=== PATIENT | male | born 1960 | race Caucasian/White ===

== ENCOUNTER 2022-04-16 06:14 | Emergency (ER) | payer MEDICAID, OTHER ==
[~2022-04-16] VITALS: Ht 180.3 cm; Wt 101.2 kg
[2022-04-16] MEDS ORDERED: methylPREDNISolone SOD SUCC 125 MG/2 ML VL IM ONE (08:15)
[2022-04-16] MEDS ORDERED: KETOROLAC TROMETH 60MG/2ML VIAL IM ONE (08:15)
[2022-04-16 08:49] VITALS: BP 117/80
[2022-04-16] MEDS ORDERED: PRED20TA2 PO (09:20)
== END 2022-04-16 09:28 | disposition home or self-care (01) ==
LOC: ER 06:14
DX: G89.29 Other chronic pain (principal); M54.50 Low back pain, unspecified; M54.16 Radiculopathy, lumbar region; Z87.39 Personal history of other diseases of the musculoskeletal system and connective tissue; Z79.899 Other long term (current) drug therapy
CPT/HCPCS: 96372; 99284; J1885; J2930

== ENCOUNTER 2022-08-01 22:45 | Emergency (ER) | payer MEDICAID ==
[~2022-08-01] VITALS: Ht 180.3 cm; Wt 100.0 kg
[2022-08-01 22:45] VITALS: BP 134/81
[~2022-08-01 22:45] MED LIST: PRED20TA2 PO
== END 2022-08-02 01:07 | disposition left against medical advice (07) ==
LOC: ER 22:46
DX: H57.89 Other specified disorders of eye and adnexa (principal); Z53.21 Procedure and treatment not carried out due to patient leaving prior to being seen by health care provider

== ENCOUNTER 2025-04-17 08:35 | Inpatient (IN) | payer MEDICAID, OTHER ==
[~2025-04-17] VITALS: Ht 182.9 cm; Wt 111.8 kg
[~2025-04-17 08:35] MED LIST changes: +ASPI81CH59 PO; +ATOR20TA50 PO; +CARV3.1240 PO; +CYCL-837 PO; +DOCU-94 PO; +GABA-1250 PO; +PANT40TA2 PO; +PERCOT PO; -PRED20TA2 PO
[2025-04-17] MEDS ORDERED: fentaNYL CITRATE 100 MCG/2 ML VL ONE (09:29)
[2025-04-17] MEDS ORDERED: ONDANSETRON HCL 4 MG/2 ML VIAL ONE ×2 (09:29→15:45)
[2025-04-17] MEDS ORDERED: LIDOCAINE 2% TOPICAL JELLY 5 ML URJT TOP ONE (09:29)
[2025-04-17] MEDS ORDERED: LIDOCAINE 1% INJ PF 5ML AMP ONE (09:29)
[2025-04-17] MEDS ORDERED: KETAMINE 50mg/ML 1ml syringe ONE (09:29)
[2025-04-17] MEDS ORDERED: HYDROmorphone HCL 2 MG/ML VL/or syr ONE ×2 (09:29→18:25)
[2025-04-17] MEDS ORDERED: MIDAZOLAM HCL 2MG/2ML 2ml VIAL (1mg/ml) ONE (09:29)
[2025-04-17] MEDS ORDERED: SODIUM CHLORIDE LOCK 50 ML ONE (09:29)
[2025-04-17] MEDS ORDERED: ROCURONIUM 10MG/ML 10ML VIAL IV ONE (09:29)
[2025-04-17] MEDS ORDERED: PROPOFOL 10 MG/ML 20 ML IV ONE ×4 (09:29→17:54)
[2025-04-17] MEDS ORDERED: fentaNYL CITRATE 5 ML ONE ×3 (09:29→17:10)
--- NOTE | 2025-04-17 14:31 | DVHHP2 ---
History Allergies: Coded Allergies: NO KNOWN ALLERGIES (Unverified , 04/16/22) Chief Complaint: Lumbar stenosis patient arrives today for elective spine surgery with Dr Volodymyr Plaza lumbar 1-5 posterior spinal decompression and fusion with lumbar 1-2 fusion with bone graft and instrumentation. Patient is agreeable to accept blood. The risks/benefits/alternatives of surgery were explained to the patient in detail including but not limited to , stroke, paralysis, myocardial infarction, bleeding, infection, complications of anesthesia (dry mouth, sore throat, dental damage, respiratory depression, blindness), postoperative infection, incomplete relief of symptoms, recurrence of symptoms, damage to blood vessels, nerves and tendons, pulmonary embolism and possible need for repeat surgery in the future. Pain, damage to surrounding soft tissue structures, need for reoperation or future surgery, persistent pain/disability/deformity, bone graft collapse or extrusion of interbody device, instrumentation failure, need for instrumentation removal, dural tear, temporary or permanent nerve root damage, deep vein thrombosis, pulmonary embolism, were described to the patient in detail and the patient wishes to proceed. No guarantee of surgical outcome/improvement was implied. All of the questions were answered thoroughly and consents were obtained. Call with questions Loco Mayfield [facility] Orthopaedic Spine Surgery nurse practitioner For Dr Patrick Plaza Patient was examined, chart reviewed, labs evaluated, and diagnostic studies and findings analyzed. Case was discussed with Dr. Volodymyr Plaza who formulated the plan of care. This medical document was created using an electronic medical record system with [employer] dictation system. Although this document has been carefully reviewed, there might still be some phonetic and typographical errors. These areas are purely typographical due to imperfections of the software programs, and do not reflect any compromise in the patient's medical care. Present Illness(Onset/Duration Patient has a history of prior surgeries to his back x4, he has had excruciating back and neck pain for about 40 years, currently he is suffering from excru ciating low back pain which is limiting his range of motion daily activities he is in pain management and is on home narcotic medications and muscle relaxers currently. Which are not helping physical therapy has not helped in the past and his prior surgeries have not resolved any of his pain. Noncontributory in this case Past Surgical History: Other (Lumbar surgeries x4, cervical surgery x1 left knee surgery x1 left shoulder rotator cuff surgery x1 two months ago) Exam Exam General Appearance: None, Normal, Obese HEENT: Normal ENT Inspection Neck: Normal, Normal Inspection, Other (Chronic neck pain) Respiratory: No Accessory Muscle Use, None, No Respiratory Distress, Other (Patient is speaking full sentences no distress noted) Cardiovascular: No Edema, No JVD, Normal Peripheral Pulses, Other (No complaints of chest pain, patient has been seen by Cardiology and recently had cardiac clearance for surgery two months ago) Gastrointestinal: Other (No complaints of nausea vomiting or diarrhea) Extremities: Normal capillary refill, Normal inspection, Other (Low back pain limiting range of motion of the bilateral lower extremities) Neurologic: Alert, Normal Mood (Pain to bilateral legs right leg is weaker than left and more painful), Other Cerebellar Function: Other (Limited and walking due to low back pain and leg numbness) Reflexes: None (Hypo reflexive bilateral lower extremities) Skin: Normal Color, Warm DENZEL MAYFIELD NP Apr 17, 2025 14:31
[2025-04-17] MEDS ORDERED: MORPHINE SULFATE INJ 2 MG/ml SYRG IV PRN (14:45)
[2025-04-17] MEDS ORDERED: MORPHINE SULFATE 4 MG/ML SYR/VIAL IV PRN (14:45)
[2025-04-17] MEDS ORDERED: HYDROmorphone HCL 2 MG/ML VL/or syr IV PRN ×3 (14:45→19:45)
[2025-04-17] MEDS ORDERED: METOCLOPRAMIDE HCL 5MG/ml INJ 2ml VIAL ONE (15:45)
[2025-04-17] MEDS: ceFAZolin 2 GM/D5W50ml 50 ML IV ONE (15:50)
[2025-04-17] MEDS: LIDOCAINE W/ EPINEPHRINE 1% 20ML VIAL ONE (15:56)
[2025-04-17] MEDS: TRANEXAMIC ACID 10 ML ONE (15:56)
[2025-04-17] MEDS ORDERED: SUGAMMADEX 200mg/2ml Vial (100MG/ML) IV ONE (18:18)
[2025-04-17] MEDS ORDERED: NITROGLYCERIN 0.4 MG SL TAB SL PRN (18:30)
[2025-04-17 19:29] VITALS: PULSE 84; RESP 9; O2SAT 99
--- NOTE | 2025-04-17 19:35 | DVHOP2 ---
Operative Report - 2 Report Details Date: 04/17/25 Preop Diagnosis: 1. post laminectomy syndrome lumbar spine with lumbar 1 to 5 spinal stenosis and massive L1/2 disck herniation Postop Diagnosis: same as pre op Surgeon: Volodymyr Miles MD Saw Operator: Doretha Mayfield NP Anesthesiologist: general Anesthesia: General Consent: The patient was informed of the risks and benefits of the procedure. These include but are not limited to complications of anesthesia, postoperative infection, incomplete relief of symptoms, recurrence of symptoms, damage to blood vessels, nerves and tendons, deep venous thrombosis, pulmonary embolism and possible need for repeat surgery in the future. Name of Procedure Performed see detailed note Procedure Details Procedure Details: Pre-op Diagnosis: 1. Post laminectomy syndrome lumbar spine with residual lumbar spinal stenosis and massive L1/2 herniated disc 3. 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 . 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 Revision lumbar 5 laminotomies/foraminotomies/facetectomies to decompress central canal and lumbar 5 nerve roots bilaterally 2. Revision lumbar 4 laminotomies, foraminotomies/facetectomies to decompress central canal and lumbar 4 nerve roots bilaterally 3. Revision lumbar 3 laminotomies foraminotomies and facetectomies to decompress central canal and bilateral lumbar 3 rakesh roots 4. Lumbar 2 laminectomy with bilateral lumbar 2 laminotomies/foraminotomies/facetectomies to decompress spinal canal and lumbar 2 nerve roots 5. Lumbar 1 to 2 posterior spinal intertransverse fusion with bone graft 6. Lumbar 1 to 2 posterior spinal instrumentation with pedicle screws 7. Autograft bone for fusion 8. Allograft bone to augment fusion 9. De-mineralized bone matrix to augment fusion 10. Microscope for micro dissection 11. Removal of retained deep spinal hardware lumbar spine Surgeon: Dr. Miles Assist: Doretha Mayfield NP Anesthesia: General Fluids and EBL: See anesthesia note Patient was seen in the Pre Anesthesia Care Unit (PACU) and the operative site was initialed by me. All questions were answered to the patients satisfaction and chart reviewed. The patient was taken to the operative room where pre- operative antibiotics were given 30 minutes prior to incision. General a nesthesia was induced and neuro-monitoring leads placed. Montalvo catheter was placed. The patient was turned prone onto the OSI-Noe spinal table. While positioning, I made sure that the belly was free to allow proper expansion of the lungs. The hips were extended and all bony prominences padded. The shoulders were abducted 80 degree and the elbows flexed 100 degrees with no tension on the brachial plexus. I check the foot arterial pulses and they were palpable. The old surgical scar was marked with a marker prior to prepping and draping. The patient was prepped and draped and time out was taken at this time per usual protocol. At this time, the C-arm fluoroscope was brought in and was used to renzo the incision borders proximally and distally. I made sure to use the previous incision and extended proximally as needed. Using a Number 10 Blade, an incision was made extending it proximally and distally per C arm renzo from the posterior spinous process of lumbar 3 down to lumbar 5 , down to the lumbo-dorsal fascia. All bleeding was controlled with electrocautery. Self-retaining retractors were placed. Electrocautery was then used to take down the lumbo-dorsal fascia, to free the muscle off the bone bilaterally where the tissue was virgin. A Micah retractor was placed over the posterior spinous process proximally and a lateral C-arm fluoroscope image was taken to insure we were at the correct level. Next, dissection through the prior surgical site was started at virgin tissue and the deep back muscles were taken down as deep as possible while avoiding getting too close to the dura and avoiding being too shallow to cause nerve injury and bleeding. Next, using bovie electro cautery, The deep fascia laterally to the facet joints was removed to expose the transverse processes of lumbar 2 , 3 and 4 and 5 while taking care to avoid injuring the facet capsule at the proximal end of the incision. At this point, I was able to expose the bilateral lumbar 2,3,4,5,Sacral 1 pedicle screw construct and it was removed without issue. Next, the microscope was bought in for visualization and using a Luxell rongeur, the posterior spinous process of lumbar 3,4,and remnants of lumbar 5 removed and the bone was saved for use as local autograft. I used alternating Kerison 2 mm and 3 mm rongeurs to perform lumbar 3 ,4 and 5 and bilateral laminotomies/foraminotomies and facetectomies to revise the decompression of the central canal and lateral recesses and foramen to decompress the bilateral lumbar 3,4,5 nerve roots and central canal. Next a lumbar 2 laminectomy performed with bilateral lumbar 2 foraminotomies/and facetectomies to decompress the central canal and bilateral lumbar 2 nerve roots. Next using alternating Kerison 2mm and 3 mm rongeurs, the superior articular facets of lumbar 2 were removed bilaterally at the virgin dissection to decompress the lateral recess (facetectomies) and then extended proximally to decompress the foramen bilaterally (foraminotomies). Next , carefully, straight and curved curettes were used to free up the dura from residual lamina left from the prior surgeries and kerison 2mm and 3 mm rongeurs removed the remaining lamina (revision laminotomies). Next, the 3mm and 3mm Kerison rongeurs undercut the superior articular facets and widened the foramina in the manner described above for the4 and 5 levels. I used a ball tipped nerve probed to insure that the respective nerve roots were able to be mobilized 5mm in each direction were unimpeded in the lateral recess and foramen. Next I carefully inspected the dura to make sure no durotomy was visible and it was not. I covered the exposed dura with gelfoam soaked in thrombin and the microscope was wheeled away from the operative filed. Using C arm fluoroscopy, I used the previous screw sites and placed 7.5 X50 screws back into the lumbar 2 pedicles and then placed 6.5 X50mm pedicle screws into Lumbar 1 Next, the c-arm fluoroscope took an AP and lateral x-ray to ensure proper placement of the pedicle screws. Next, the neuro-stimulation probe was placed over the tip of each screw and each screw stimulated only after a current greater than 10 mA was delivered to the screw. Next , I took a Midas Miguel Drill to decorticate the transverse process which were exposed and local bone graft, Bacterin allograft bone substitute and Demineralized bone matrix were placed along the inter transverse process intervals bilaterally (the fusion bed). Next a curved ashlee sized to fit the pedicle screw interval was placed and secured to each pedicle screw using set screws, The set screws were tighten using a torque screwdriver (set to 10 N*M torque) to secure the ashlee to the pedicle screws bilaterally. Final AP and lateral C arm fluoroscopic films were taken at this time. Next a 10 English diameter Hemovac drain was laced deep to the lumbo- dorsal fascia. The lumbo-dorsal fascia was closed with interrupted 0-Vicry sutures. The subcutaneous tissue was closed with interrupted 2-0 Vicryl sutures. The skin was closed with 2-0 nylon subcuticular suture. Sterile dressings were place. The pt. was turned supine onto the stretcher, extubated and taken to the recovery room in stable condition. Additional Notes: cpt codes: [id number] Condition Stable Disposition Still a Patient VOLODYMYR MILES MD Apr 17, 2025 19:35
[2025-04-17 19:45] VITALS: PULSE 85; RESP 9; O2SAT 96
[2025-04-17] MEDS: ACETAMINOPHEN IV 1000 MG/100ML (10MG/ML) IV ONE (19:45)
--- NOTE | 2025-04-17 20:32 | DVH ---
C-ARM FLUOROSCOPY: PROCEDURE: Revision L1 through L5. Technique: C-arm used for decompression posteriorly of L1 through L5. FLUOROSCOPY TIME: 46.2 seconds DAP: 30.5 mgy FINDINGS: Spot intraoperative C arm radiographs demonstrating less than 60 minutes. IMPRESSION: 1. Please refer to surgical report for detailed findings.
--- NOTE | 2025-04-17 20:34 | DVH ---
CLINICAL INDICATION: REVISION L1-5 TECHNIQUE: 9 radiographic views of the revision of L1 through L5 were obtained. Comparison: None FINDINGS/IMPRESSION: Total fluoro time 46.2 seconds Cumulative dose: 30.5 mGy
[2025-04-17] MEDS: ceFAZolin 1GM/50ML 50 ML IV SCH (22:54)
[2025-04-17] MEDS: DOCUSATE SOD 100 MG CAP PO SCH (22:55)
[2025-04-17] MEDS: CYCLOBENZAPRINE HCL 10 MG TAB PO SCH (22:57)
[2025-04-17] MEDS: CARVEDILOL 3.125 MG TAB PO SCH (22:57)
[2025-04-17] MEDS: MORPHINE SULFATE INJ 2 MG/ml SYRG IV PRN (22:59)
[2025-04-17] MEDS: D5W/SOD CHLO 0.9% 1,000 ML IV SCH (23:27)
[2025-04-18] VITALS (8 sets, daily range): BP systolic 113–122; BP diastolic 67–87; PULSE 91–116; RESP 17–19; TEMP 98–98.7; O2SAT 91–96
[2025-04-18] MEDS: HYDROcodone-ACET 10/325MG TAB PO PRN (02:26)
[2025-04-18] MEDS: GABAPENTIN 300 MG CAP PO SCH (08:35)
[2025-04-18] MEDS ORDERED: DOCUSATE SOD 100 MG CAP PO SCH (10:00)
[2025-04-18] MEDS: KETOROLAC TROMETH 30 MG/ML 1ML VIAL IV ONE (10:15)
[2025-04-18] MEDS: METOCLOPRAMIDE HCL 5MG/ml INJ 2ml VIAL IV ONE ×2 (10:15)
[2025-04-18] MEDS: ONDANSETRON HCL 4 MG/2 ML VIAL IV ONE (10:16)
[2025-04-18] MEDS ORDERED: SUCCINYLCHOLINE CHLORIDE 20 MG/ML 10ML VIAL IV ONE (13:14)
[2025-04-18 14:13] LABS: Hematocrit 37.5 % (41.0-53.0); Hemoglobin 12.8 g/dL (13.5-17.5)
--- NOTE | 2025-04-18 14:30 | DVHPN2 ---
Progress Note - Surgical Date Seen: Apr 18, 2025 Post op day Post op day: 1 Subjective Review of Systems: HEENT:Normal, CVS:Normal, RESPIRATORY:Normal, GI:Normal, :Normal, MSK:Abnormal (Patient states that he has difficulty ambulating due to bilateral leg weakness left was started 1st excruciating low back pain), NEURO:Abnormal (Patient has had four prior lumbar surgeries) Objective Vital signs Vital Sign Date Time Temp Pulse Resp B/P (MAP) Pulse Ox O2 Delivery O2 Flow Rate FiO2 04/18/25 13:16 116 18 110/59 04/18/25 12:58 98.6 95 98.6 04/18/25 00:50 Room Air* 0 21 Total Intake and Output 04/17/25 04/17/25 04/18/25 15:00 23:00 07:00 Intake Total 500 ml 160 ml 300 ml Output Total 250 ml 300 ml Balance 500 ml -90 ml 0 ml Medications Current Medications Medications Dose Ordered Sig/Luzma Route Start Time Stop Time Status Last Admin Dose Admin Atorvastatin Calcium 20 mg HS PO 04/18/25 22:00 Carvedilol 3.125 mg BID PO 04/17/25 22:00 04/18/25 08:36 3.125 MG Docusate Sodium 100 mg DAILY PO 04/18/25 10:00 Hold Gabapentin 300 mg DAILY PO 04/18/25 10:00 04/18/25 08:35 300 MG Dextrose/Sodium Chloride 1,000 ml @ 100 mls/hr Q10H IV 04/17/25 18:30 04/18/25 03:38 100 MLS/HR Ondansetron HCl 4 mg Q4HP PRN IV 04/17/25 18:30 Acetaminophen 650 mg Q6HP PRN PO 04/17/25 18:30 Acetaminophen/ Hydrocodone Bitart 1 tab Q6HP PRN PO 04/17/25 18:30 04/18/25 10:47 1 TAB Cyclobenzaprine HCl 10 mg TID PO 04/17/25 22:00 04/18/25 06:07 10 MG Docusate Sodium 100 mg BID PO 04/17/25 22:00 04/18/25 08:36 100 MG Cefazolin Sodium 50 ml @ 100 mls/hr Q8HR IV 04/17/25 22:00 04/19/25 14:29 04/18/25 13:15 100 MLS/HR Nitroglycerin 0.4 mg Q5MINP PRN SL 04/17/25 18:30 Morphine Sulfate 2 mg Q30M PRN IV 04/17/25 18:30 Morphine Sulfate 2 mg Q4HP PRN IV 04/18/25 14:00 Laboratory Laboratory Tests 04/18/25 14:00 Examination: GENERAL:Normal, HEENT:Normal, NECK:Normal, LUNGS:Normal, CVS:Normal, ABDOMEN:Normal, MSK:Normal (That his pain is patient states that his pain is poorly controlled overnight he had difficulty sleeping he has been able to reposition himself independently in bed), SKIN:Normal, NEURO:Normal (Patient states that his preoperative symptoms have improved but his post surgical pain is excruciating), :Normal Problem List/Assessment/Plan Problems: (1) Acute post-operative pain (2) Muscle spasm of back (3) Lumbar radiculopathy (4) Acute exacerbation of chronic low back pain (5) Hx of degenerative disc disease Assessment and Plan POD # 1. Disposition: -Pending Events of the day Patient states he had extreme difficulty sleeping last night due to poorly controlled pain Patient states that he has improvement in preoperative symptoms Patient able to independently move himself around bed with increased pain with movement Patient has not gotten up out of bed yet Drain output documented as 120 but no indication of which drain the output was from, drain to reservoir basically MD and this will be discontinued, drain 1. Was emptied and got 180 mL out is unsure when the last time this drain was emptied Reviewed drain assessment protocols and expectations with staff, no documentation of overnight draining with delineation of drains one or two -Discharge RX: Pending -Follow up appointment: with Dr Plaza on prior scheduled appointment date set out preop appointment [id number] [facility] [address] [place] [id number] -Pain: - IV pain meds post op day 1, with PO supplementation, goal is to progress weaning off IV medications and control pain with PO only. morphine 2mg q 4 hours (PAIN 7-10) - P.O. analgesics:Tylenol 650MG (PAIN 1-3) Peyton 10/325 mg (PAIN 4-6) - Muscle relaxers scheduled administration. This is a beneficial medications for the incisional pain as it is mostly related to muscle spasms. Flexeril 10 mg TID - Cepacol throat lozenges as needed for sore throat -Antibiotics Operative recommendations: -Postoperative dose:-Post operative antibiotics cefazolin 1 g IV piggyback every 8 hours x 48 hours total of 6 doses -DVT PPX: -Hold all chemical DVT/ blood thinners for 14 days postoperatively -use mechanical DVT PPX such as SCD's, ambulation -Activity: -Pending PT evaluation and patients progression -Sit at side of bed for meals -Goal: Ambulate independently and safely (may use assistive devices if needed) -Medical Therapy goals: -Afebrile- Patient may develop a expected post operative fever by day 2-3, this may not be accompanied with a elevation in WBC. if fever develops: Acetaminophen for fever. Albuterol nebulizer Tx every 12 hours for 24 hours to facilitate adequate lung expansion and prevent development of atelectasis. -Euglycemic: bloods sugars under 130mmol/L for optimal healing -Normotensive: Avoid events of hypertension. This helps to keep post operative healing intact and avoids destabilization of beneficial hemostatic coagulation. -Lumbar: -If patient is comfortable encouraged the patient to lay on their side to facilitate wound healing -Drains: -Hemovac drains: These will be to full compression unless otherwise ordered. Please record and document output AND characteristic of fluid present independently EVERY 6 hours more often as needed. if there in no output indicate this by documenting 0ml. If output is greater than 100 ml in one hour of ajay blood call provider. These drains will be removed once the drainage is at a acceptable level (generally less than 100ml in 24 hours) -Neo dressing: This will stay in place and will be removed at the patients follow up visit. Nursing is to assess the seal and power source. The seal should be intact and the power source should have a green flashing light indicating it is functioning well. Batteries can last up to 14 days. If a leak develops the dressing edges can be reinforced with a Tegaderm dressing to reestablish intact seal. The Neo dressing is NOT a wound vac. This does not get changed, it does not need home health management. -Record output independently, drain 1. Is a deep drain and drain 2. Is a superficial drain. Wound drainage is described by type, color, amount, and odor. Drainage can be 1 Serous: Clear and thin, may be present in healing healthy wound. 2 Serosanguineous containing blood may also be present and healthy healing wound 3. Sanguinous primarily blood 4. Purulent this is thick, white, and pus like. It may be indicated to give of a infection and should constitute a call to the provider immediately with the plan that the sample should be cultured. -Montalvo: discontinued in OR -Dressings Take care not to disrupt the NEO dressing seal. If there is a break in the seal it can be trouble shot with a Tegaderm dressing. -Dressing to Hemovac drains may be changed once the drains have been removed by the provider. -Bowel management: -Colace 100mg bid -Diet: -Clear liquid diet and advance as patient tolerates within dietary limitations ( example: diabetic, Cardiac) -Incentive Spirometer: -10 x hour while awake, RN please educate and observe repeat demonstration, have IS at bedside POD #1 -X-rays: - none indicated at this time -Consults: -Physical Therapy evaluation, treatment recommendations, and discharge recommendations Call with questions Loco Pinzon [facility]- Orthopaedic Spine Surgery nurse practitioner For Dr Patrick Plaza Patient was examined, chart reviewed, labs evaluated, and diagnostic studies and findings analyzed. Case was discussed with Dr. Volodymyr Plaza who formulated the plan of care. This medical document was created using an electronic medical record system with [employer] dictation system. Although this document has been carefully reviewed, there might still be some phonetic and typographical errors. These areas are purely typographical due to imperfections of the software programs, and do not reflect any compromise in the patient's medical care. My Orders My Orders Orders - DENZEL PINZON NP Procedure Category Date Status Time Morphine Sulfate PHA 04/18/25 In Process Injection 14:00 Plan discussed with Plan discussed with: Patient, Other ([place] extension [phone]) Visit Coding Surgery Date of Service if different f: Apr 17, 2025 Billing Provider: DENZEL PINZON NP Surgery Visit Codes: NOT BILLABLE DENZEL PINZON NP Apr 18, 2025 14:30
[2025-04-18] MEDS: MORPHINE SULFATE INJ 2 MG/ml SYRG IV PRN (18:14)
[2025-04-18] MEDS: ATORVASTATIN 20 MG TAB PO SCH (21:22)
[2025-04-19] VITALS (8 sets, daily range): BP systolic 116–134; BP diastolic 75–93; PULSE 97–112; RESP 14–18; TEMP 97.6–98.8; O2SAT 93–99
[2025-04-19] MEDS: ONDANSETRON HCL 4 MG/2 ML VIAL IV PRN (02:28)
[2025-04-19] MEDS: MORPHINE SULFATE INJ 2 MG/ml SYRG IV PRN (02:29)
--- NOTE | 2025-04-19 16:36 | DVHPN2 ---
Progress Note - Surgical Date Seen: Apr 19, 2025 Post op day Post op day: 2 Subjective Patient reports: No new complaints, Feels better Review of Systems: HEENT:Normal, CVS:Normal, RESPIRATORY:Normal, GI:Normal, :Normal, MSK:Normal, NEURO:Abnormal Objective Vital signs Vital Sign Date Time Temp Pulse Resp B/P (MAP) Pulse Ox O2 Delivery O2 Flow Rate FiO2 04/19/25 13:01 97 14 129/83 04/19/25 13:00 98.5 95 98.5 04/19/25 07:45 Room Air* 0 21 Total Intake and Output 04/18/25 04/18/25 04/19/25 15:00 23:00 07:00 Intake Total 50 ml 1810 ml 750 ml Output Total 1040 ml 1150 ml Balance 50 ml 770 ml -400 ml Medications Current Medications Medications Dose Ordered Sig/Luzma Route Start Time Stop Time Status Last Admin Dose Admin Atorvastatin Calcium 20 mg HS PO 04/18/25 22:00 04/18/25 21:22 20 MG Carvedilol 3.125 mg BID PO 04/17/25 22:00 04/19/25 08:08 3.125 MG Docusate Sodium 100 mg DAILY PO 04/18/25 10:00 Hold Gabapentin 300 mg DAILY PO 04/18/25 10:00 04/19/25 08:07 300 MG Dextrose/Sodium Chloride 1,000 ml @ 100 mls/hr Q10H IV 04/17/25 18:30 04/19/25 08:28 100 MLS/HR Ondansetron HCl 4 mg Q4HP PRN IV 04/17/25 18:30 04/19/25 02:28 4 MG Acetaminophen 650 mg Q6HP PRN PO 04/17/25 18:30 Acetaminophen/ Hydrocodone Bitart 1 tab Q6HP PRN PO 04/17/25 18:30 04/19/25 10:40 1 TAB Cyclobenzaprine HCl 10 mg TID PO 04/17/25 22:00 04/19/25 12:56 10 MG Docusate Sodium 100 mg BID PO 04/17/25 22:00 04/18/25 21:22 100 MG Nitroglycerin 0.4 mg Q5MINP PRN SL 04/17/25 18:30 Morphine Sulfate 2 mg Q30M PRN IV 04/17/25 18:30 Morphine Sulfate 2 mg Q4HP PRN IV 04/18/25 14:00 04/19/25 13:01 2 MG Laboratory Laboratory Tests 04/18/25 14:00 Examination: GENERAL:Normal, HEENT:Normal, NECK:Normal, LUNGS:Normal, CVS:Normal, MSK:Normal, SKIN:Normal (Posterior lumbar incision covered with neo dressing which is functioning seal is intact power source is on, drain 1. Had a total of 80 mL out the past 12 hours we will leave the drain in and reassess tomorrow), NEURO:Normal (Preop symptoms have improved however postoperative pain is poorly controlled), :Normal Problem List/Assessment/Plan Problems: (1) Muscle spasm of back (2) Acute post-operative pain Assessment and Plan POD # 2 Disposition: -Pending Events of the day Posterior lumbar incision covered with neo dressing which is functioning seal is intact power source is on, drain 1. Had a total of 80 mL out the past 12 hours we will leave the drain in and reassess tomorrow Patient states that he has improvement in preoperative symptoms Patient able to independently move himself around bed with increased pain with movement Patient has not gotten up out of bed yet - patient refused to work with physical therapy due to back pain Muscle relaxers changed, scheduled a pain medication also adjusted as well as dose -Discharge RX: Pending -Follow up appointment: with Dr Plaza on prior scheduled appointment date set out preop appointment [phone] [address] [facility] [address] [address] -Pain: - IV pain meds post op day 1, with PO supplementation, goal is to progress weaning off IV medications and control pain with PO only. morphine 2mg q 4 hours (PAIN 7-10) - P.O. analgesics:Tylenol 650MG (PAIN 1-3) [place] 10/325 mg (PAIN 4-6) - Muscle relaxers scheduled administration. This is a beneficial medications for the incisional pain as it is mostly related to muscle spasms. Flexeril 10 mg TID - Cepacol throat lozenges as needed for sore throat -Antibiotics Operative recommendations: -Postoperative dose:-Post operative antibiotics cefazolin 1 g IV piggyback every 8 hours x 48 hours total of 6 doses -DVT PPX: -Hold all chemical DVT/ blood thinners for 14 days postoperatively -use mechanical DVT PPX such as SCD's, ambulation -Activity: -Pending PT evaluation and patients progression -Sit at side of bed for meals -Goal: Ambulate independently and safely (may use assistive devices if needed) -Medical Therapy goals: -Afebrile- Patient may develop a expected post operative fever by day 2-3, this may not be accompanied with a elevation in WBC. if fever develops: Acetaminophen for fever. Albuterol nebulizer Tx every 12 hours for 24 hours to facilitate adequate lung expansion and prevent development of atelectasis. -Euglycemic: bloods sugars under 130mmol/L for optimal healing -Normotensive: Avoid events of hypertension. This helps to keep post operative healing intact and avoids destabilization of beneficial hemostatic coagulation. -Lumbar: -If patient is comfortable encouraged the patient to lay on their side to facilitate wound healing -Drains: -Hemovac drains: These will be to full compression unless otherwise ordered. Please record and document output AND characteristic of fluid present independently EVERY 6 hours more often as needed. if there in no output indicate this by documenting 0ml. If output is greater than 100 ml in one hour of ajay blood call provider. These drains will be removed once the drainage is at a acceptable level (generally less than 100ml in 24 hours) -Neo dressing: This will stay in place and will be removed at the patients follow up visit. Nursing is to assess the seal and power source. The seal should be intact and the power source should have a green flashing light indicating it is functioning well. Batteries can last up to 14 days. If a leak develops the dressing edges can be reinforced with a Tegaderm dressing to reestablish intact seal. The Neo dressing is NOT a wound vac. This does not get changed, it does not need home health management. -Record output independently, drain 1. Is a deep drain and drain 2. Is a superficial drain. Wound drainage is described by type, color, amount, and odor. Drainage can be 1 Serous: Clear and thin, may be present in healing healthy wound. 2 Serosanguineous containing blood may also be present and healthy healing wound 3. Sanguinous primarily blood 4. Purulent this is thick, white, and pus like. It may be indicated to give of a infection and should constitute a call to the provider immediately with the plan that the sample should be cultured. -Katia: discontinued in OR -Dressings Take care not to disrupt the NEO dressing seal. If there is a break in the seal it can be trouble shot with a Tegaderm dressing. -Dressing to Hemovac drains may be changed once the drains have been removed by the provider. -Bowel management: -Colace 100mg bid -Diet: -Clear liquid diet and advance as patient tolerates within dietary limitations ( example: diabetic, Cardiac) -Incentive Spirometer: -10 x hour while awake, RN please educate and observe repeat demonstration, have IS at bedside POD #1 -X-rays: - none indicated at this time -Consults: -Physical Therapy evaluation, treatment recommendations, and discharge recommendations Call with questions Loco Mayfield ACNP- Orthopaedic Spine Surgery nurse practitioner For Dr Patrick Plaza Patient was examined, chart reviewed, labs evaluated, and diagnostic studies and findings analyzed. Case was discussed with Dr. Volodymyr Plaza who formulated the plan of care. This medical document was created using an electronic medical record system with [employer] dictation system. Although this document has been carefully reviewed, there might still be some phonetic and typographical errors. These areas are purely typographical due to imperfections of the software programs, and do not reflect any compromise in the patient's medical care. My Orders My Orders Orders - DENZEL MAYFIELD NP Procedure Category Date Status Time Drain Assessment RICKY 04/19/25 In Process 16:22 Plan discussed with Plan discussed with: Patient, Other Visit Coding Surgery Date of Service if different f: Apr 17, 2025 Billing Provider: DENZEL MAYFIELD NP Surgery Visit Codes: NOT BILLABLE DENZEL MAYFIELD NP Apr 19, 2025 16:35
[2025-04-19] MEDS ORDERED: HYDROcodone-ACET 10/325MG TAB PO PRN (20:45)
[2025-04-19] MEDS: ACETAMINOPHEN 325 MG TAB PO PRN (20:54)
[2025-04-19] MEDS: CARISOPRODOL 350 MG TAB PO SCH (21:24)
[2025-04-19] MEDS: HYDROcodone-ACET 10/325MG TAB PO PRN (22:48)
[2025-04-20] VITALS (8 sets, daily range): BP systolic 103–133; BP diastolic 63–87; PULSE 89–122; RESP 18–20; TEMP 97.8–98.9; O2SAT 91–96
--- NOTE | 2025-04-20 11:17 | DVHINCON2 ---
Date of service: Apr 20, 2025 Reason for Consultation Postop medical management while in the hospital History of Present Illness Lumbar stenosis patient arrives today for elective spine surgery with Dr Volodymyr Plaza lumbar 1-5 posterior spinal decompression and fusion with lumbar 1-2 fusion with bone graft and instrumentation. Patient is agreeable to accept blood. He underwent a successful lumbar spine surgery. Patient participating with ph ysical therapy. Currently complains of pain. Other review of systems reviewed normal. Past Medical History Hypercholesterolemia. Hypertension. DJD. GERD. Past Surgical History Back surgery Family History: Patient reports no known family medical history. Allergies: Coded Allergies: NO KNOWN ALLERGIES (Unverified , 04/16/22) Home Meds Reported Medications Aspirin (Aspirin Low Dose) 81 Mg Chw, 81 MG PO DAILY, TAB.CHEW 04/16/25 Docusate Sodium (Colace) 100 Mg Cap, 100 MG PO DAILY, CAP 04/16/25 Cyclobenzaprine Hcl (Cyclobenzaprine Hcl) 5 Mg Tab, 10 MG PO DAILY, TAB 04/16/25 Atorvastatin Calcium (ATORVASTATIN CALCIUM) 20 Mg Tab, 20 MG PO DAILY, TAB 04/16/25 Gabapentin (Gabapentin) 300 Mg Cap, 400 MG PO DAILY, CAP 04/16/25 Pantoprazole Sodium Sesquihydr (Protonix) 40 Mg Tab, 40 MG PO DAILY, #30 TAB 04/16/25 Carvedilol (Carvedilol) 3.125 Mg Tab, 3.125 MG PO BID, TAB 04/16/25 Oxycodone W/ Acetaminophen (Percocet 5/325MG) 1 Tab Tb, 2 TAB PO TID, #90 TAB 04/16/25 Current Medications Current Medications Medications (Trade) Dose Ordered Sig/Luzma Route PRN Reason Start Time Stop Time Status Last Admin Acetaminophen/ Hydrocodone Bitart ([place] 10/325MG Tab) 2 tab Q4HP PRN PO MODERATE PAIN (4-6 PAIN SCALE) 04/19/25 20:45 04/19/25 21:12 DC Carisoprodol (Soma Tablet) 350 mg TID PO 04/19/25 22:00 04/20/25 05:57 Acetaminophen/ Hydrocodone Bitart ([place] 10/325MG Tab) 1 tab Q4HP PRN PO MODERATE PAIN (4-6 PAIN SCALE) 04/19/25 21:15 04/20/25 06:47 Review of Systems No complaints of chest pain shortness for breath headache dizziness or lightheadedness. Other review of systems reviewed normal Vital Signs Vital Signs Date Time Temp Pulse Resp B/P (MAP) Pulse Ox O2 Delivery O2 Flow Rate FiO2 04/20/25 09:06 96 133/87 04/20/25 09:00 98.7 18 92 98.7 04/20/25 07:47 Room Air* 0 21 Physical Exam Alert awake oriented x3. HEENT neck supple no JVD. Pupils equal round react to light. Heart regular rate and rhythm S1-S2. Lungs fair air movement chest tube will expansion no rales wheezes. Abdomen soft nontender positive bowel sounds. Extremities no edema positive pulses. Labs/Diagnostic Data Labs Test 04/18/25 14:00 Range/Units Hemoglobin 12.8 L 13.5-17.5 g/dL Hematocrit 37.5 L 41.0-53.0 % Assessment Drains from the back or removed today by nurse practitioner spine surgeon. Patient initially thought would benefit from going to shelter facility however he wants to go home with the arrangements for home PT. Therefore case is discussed with the on-call [facility] [employer] caser and they will be sitting of the record DME in physical therapy for tomorrow. Continue oral pain medications. Continue rest of supportive care and treatment. If he remains stable consider discharge home tomorrow. Discussed with the nurse regarding care plan. Problems(with codes): (1) Lumbar radiculopathy (2) Muscle spasm of back (3) Acute post-operative pain (4) Hx of degenerative disc disease (5) Acute exacerbation of chronic low back pain Plan discussed with: Patient, Other KYLIE NAGEL MD Apr 20, 2025 11:17
--- NOTE | 2025-04-20 11:59 | DVHPN2 ---
Progress Note - Surgical Date Seen: Apr 20, 2025 Post op day Post op day: 3 Subjective Patient reports: No new complaints, Feels better Review of Systems: HEENT:Normal, CVS:Normal, RESPIRATORY:Normal, GI:Normal, :Normal, MSK:Normal, NEURO:Normal Objective Vital signs Vital Sign Date Time Temp Pulse Resp B/P (MAP) Pulse Ox O2 Delivery O2 Flow Rate FiO2 04/20/25 09:06 96 133/87 04/20/25 09:00 98.7 18 92 98.7 04/20/25 07:47 Room Air* 0 21 Total Intake and Output 04/19/25 04/19/25 04/20/25 15:00 23:00 07:00 Intake Total 1400 ml 775 ml Output Total 600 ml 1070 ml Balance 800 ml -295 ml Medications Current Medications Medications Dose Ordered Sig/Luzma Route Start Time Stop Time Status Last Admin Dose Admin Atorvastatin Calcium 20 mg HS PO 04/18/25 22:00 04/19/25 21:24 20 MG Carvedilol 3.125 mg BID PO 04/17/25 22:00 04/20/25 09:06 3.125 MG Docusate Sodium 100 mg DAILY PO 04/18/25 10:00 Hold Gabapentin 300 mg DAILY PO 04/18/25 10:00 04/20/25 09:06 300 MG Dextrose/Sodium Chloride 1,000 ml @ 100 mls/hr Q10H IV 04/17/25 18:30 04/20/25 00:31 100 MLS/HR Ondansetron HCl 4 mg Q4HP PRN IV 04/17/25 18:30 04/19/25 02:28 4 MG Acetaminophen 650 mg Q6HP PRN PO 04/17/25 18:30 04/19/25 20:54 650 MG Docusate Sodium 100 mg BID PO 04/17/25 22:00 04/20/25 09:05 100 MG Nitroglycerin 0.4 mg Q5MINP PRN SL 04/17/25 18:30 Morphine Sulfate 2 mg Q30M PRN IV 04/17/25 18:30 Morphine Sulfate 2 mg Q4HP PRN IV 04/18/25 14:00 04/19/25 18:25 2 MG Carisoprodol 350 mg TID PO 04/19/25 22:00 04/20/25 05:57 350 MG Acetaminophen/ Hydrocodone Bitart 1 tab Q4HP PRN PO 04/19/25 21:15 04/20/25 06:47 1 TAB Laboratory Laboratory Tests 04/18/25 14:00 Examination: GENERAL:Normal, HEENT:Normal, NECK:Normal, LUNGS:Normal, CVS:Normal, ABDOMEN:Normal, MSK:Normal (improved ambulation), SKIN:Normal (neo intact, dc drain today), NEURO:Normal (reolution of pre op pains), :Normal Problem List/Assessment/Plan Problems: (1) Muscle spasm of back (2) Acute post-operative pain Assessment and Plan POD # 3 Disposition: -Pending Events of the day Posterior lumbar incision covered with neo dressing which is functioning seal is intact power source is on, drain 1 discontinued Patient states that he has improvement in preoperative symptoms Patient able to independently move himself around bed with increased pain with movement- it is improving Patient has gotten up with PT and ambulated in hallway Plan to DC in the am 12 -Discharge RX: Pending -Follow up appointment: with Dr Plaza on prior scheduled appointment date set out preop appointment [phone] [address] [facility] [address] [place] [id number] -Pain: - IV pain meds post op day 1, with PO supplementation, goal is to progress weaning off IV medications and control pain with PO only. morphine 2mg q 4 hours (PAIN 7-10) - P.O. analgesics:Tylenol 650MG (PAIN 1-3) [place] 10/325 mg (PAIN 4-6) - Muscle relaxers scheduled administration. This is a beneficial medications for the incisional pain as it is mostly related to muscle spasms. Flexeril 10 mg TID - Cepacol throat lozenges as needed for sore throat -Antibiotics Operative recommendations: -Postoperative dose:-Post operative antibiotics cefazolin 1 g IV piggyback every 8 hours x 48 hours total of 6 doses -DVT PPX: -Hold all chemical DVT/ blood thinners for 14 days postoperatively -use mechanical DVT PPX such as SCD's, ambulation -Activity: -Pending PT evaluation and patients progression -Sit at side of bed for meals -Goal: Ambulate independently and safely (may use assistive devices if needed) -Medical Therapy goals: -Afebrile- Patient may develop a expected post operative fever by day 2-3, this may not be accompanied with a elevation in WBC. if fever develops: Acetaminophen for fever. Albuterol nebulizer Tx every 12 hours for 24 hours to facilitate adequate lung expansion and prevent development of atelectasis. -Euglycemic: bloods sugars under 130mmol/L for optimal healing -Normotensive: Avoid events of hypertension. This helps to keep post operative healing intact and avoids destabilization of beneficial hemostatic coagulation. -Lumbar: -If patient is comfortable encouraged the patient to lay on their side to facilitate wound healing -Dressings Take care not to disrupt the NEO dressing seal. If there is a break in the seal it can be trouble shot with a Tegaderm dressing. -Dressing to Hemovac drains may be changed -Bowel management: -Colace 100mg bid -Diet: -patient tolerating -Incentive Spirometer: -10 x hour while awake, RN please educate and observe repeat demonstration, have IS at bedside POD #1 -X-rays: - none indicated at this time -Consults: -Physical Therapy evaluation, treatment recommendations, and discharge recommendations Call with questions Loco Mayfield ACNP- Orthopaedic Spine Surgery nurse practitioner For Dr Patrick Palza Patient was examined, chart reviewed, labs evaluated, and diagnostic studies and findings analyzed. Case was discussed with Dr. Volodymyr Plaza who formulated the plan of care. This medical document was created using an electronic medical record system with [employer] dictation system. Although this document has been carefully reviewed, there might still be some phonetic and typographical errors. These areas are purely typographical due to imperfections of the software programs, and do not reflect any compromise in the patient's medical care. My Orders My Orders Orders - DENZEL MAYFIELD NP Procedure Category Date Status Time Drain Assessment RICKY 04/19/25 In Process 16:22 Carisoprodol Tablet PHA 04/19/25 In Process (Soma Tablet) 22:00 Hydrocodone-Acet PHA 04/19/25 In Process 10/325mg Tab ([place] 21:15 Plan discussed with Plan discussed with: Patient Visit Coding Surgery Date of Service if different f: Apr 20, 2025 Billing Provider: DENZEL MAYFIELD NP Surgery Visit Codes: NOT BILLABLE DENZEL MAYFIELD NP Apr 20, 2025 11:59
[2025-04-20 17:04] LABS: Hematocrit 35.2 % (41.0-53.0); Hemoglobin 11.5 g/dL (13.5-17.5); Mean Corpuscular Hemoglobin 28.6 pg (28.0-32.0); Mean Corpuscular Volume 87.2 fL (80.0-100.0); Nucleated Red Blood Cells % 0.0 %
[2025-04-20 17:14] LABS: Chloride 106 mmol/L (98-107); Potassium 3.9 mmol/L (3.5-5.1); Sodium 140 mmol/L (136-145)
[2025-04-20 17:15] LABS: Anion Gap 8 (5-15); Calcium 8.9 mg/dL (8.7-10.4); Carbon Dioxide 26 mmol/L (20-31)
[2025-04-20 17:20] LABS: BUN/Creatinine Ratio 16.7 (10.0-20.0); Blood Urea Nitrogen 11 mg/dL (9-23)
[2025-04-20 17:39] LABS: Glucose 109 mg/dL (74-106)
[2025-04-21] VITALS (7 sets, daily range): BP systolic 111–147; BP diastolic 68–91; PULSE 89–96; RESP 18–20; TEMP 36.8; O2SAT 95–97
[2025-04-21 06:53] LABS: Chloride 106 mmol/L (98-107); Potassium 3.9 mmol/L (3.5-5.1); Sodium 138 mmol/L (136-145)
[2025-04-21 06:54] LABS: Anion Gap 7 (5-15); Carbon Dioxide 25 mmol/L (20-31)
[2025-04-21 06:55] LABS: Calcium 8.8 mg/dL (8.7-10.4)
[2025-04-21 07:00] LABS: BUN/Creatinine Ratio 12.5 (10.0-20.0)
[2025-04-21 07:12] LABS: Blood Urea Nitrogen 8 mg/dL (9-23); Glucose 118 mg/dL (74-106)
[2025-04-21 07:23] LABS: Hematocrit 34.1 % (41.0-53.0); Hemoglobin 11.5 g/dL (13.5-17.5); Mean Corpuscular Hemoglobin 28.9 pg (28.0-32.0); Mean Corpuscular Volume 85.9 fL (80.0-100.0); Nucleated Red Blood Cells % 0.1 %
--- NOTE | 2025-04-21 09:00 | DVH ---
Indication: CERVICAL RADICULOPATHY Technique: CT axial images of the cervical spine are obtained without contrast. Coronal and sagittal reformats were obtained. Radiation Dose Information: CTDI volume is 25.39 mGy. Dose-length product is 684.73 mGy*cm Comparison: None FINDINGS: The cervical vertebral body heights are maintained. Anterior fusion at C5 through C7. There is moder ate to severe disc space narrowing. No prevertebral edema. Facet articulations demonstrate moderate f acet hypertrophic changes. . The atlantooccipital, atlantoaxial articulations are intact. C2-3: Severe right and moderate to severe left neural foraminal stenosis. C3-4: Severe right and moderate to severe left neural foraminal stenosis. C4-5: Moderate to severe bilateral neural foraminal stenosis. C5-6: Severe bilateral neural foraminal stenosis. C6-7: Severe bilateral neural foraminal stenosis. C7-T1: Mild bilateral neural foraminal stenosis. IMPRESSION: Moderate to severe cervical degenerative disc disease. Anterior cervical fusion C5 through C7.
--- NOTE | 2025-04-21 10:20 | DVHPN2 ---
Progress Note - Surgical Date Seen: Apr 21, 2025 Post op day Post op day: 4 Subjective Patient reports: No new complaints (No new operative related complaints, patient is having neck muscle spasms most likely due to extended time with substandard pillow), Feels better Review of Systems: HEENT:Normal, CVS:Normal, RESPIRATORY:Normal, GI:Normal, :Normal, MSK:Normal, NEURO:Normal (prior LBP) Objective Vital signs Vital Sign Date Time Temp Pulse Resp B/P (MAP) Pulse Ox O2 Delivery O2 Flow Rate FiO2 04/21/25 09:52 92 113/72 04/21/25 08:59 98.3 18 95 98.3 04/20/25 20:00 Room Air* 0 21 Total Intake and Output 04/20/25 04/20/25 04/21/25 15:00 23:00 07:00 Intake Total 1800 ml 800 ml Output Total 1200 ml 300 ml Balance 600 ml 500 ml Medications Current Medications Medications Dose Ordered Sig/Luzma Route Start Time Stop Time Status Last Admin Dose Admin Atorvastatin Calcium 20 mg HS PO 04/18/25 22:00 04/20/25 21:39 20 MG Carvedilol 3.125 mg BID PO 04/17/25 22:00 04/21/25 09:52 3.125 MG Docusate Sodium 100 mg DAILY PO 04/18/25 10:00 Hold Gabapentin 300 mg DAILY PO 04/18/25 10:00 04/21/25 09:52 300 MG Dextrose/Sodium Chloride 1,000 ml @ 100 mls/hr Q10H IV 04/17/25 18:30 04/21/25 09:53 100 MLS/HR Ondansetron HCl 4 mg Q4HP PRN IV 04/17/25 18:30 04/19/25 02:28 4 MG Acetaminophen 650 mg Q6HP PRN PO 04/17/25 18:30 04/21/25 05:18 650 MG Docusate Sodium 100 mg BID PO 04/17/25 22:00 04/21/25 09:51 100 MG Nitroglycerin 0.4 mg Q5MINP PRN SL 04/17/25 18:30 Morphine Sulfate 2 mg Q30M PRN IV 04/17/25 18:30 Morphine Sulfate 2 mg Q4HP PRN IV 04/18/25 14:00 04/19/25 18:25 2 MG Carisoprodol 350 mg TID PO 04/19/25 22:00 04/21/25 05:18 350 MG Acetaminophen/ Hydrocodone Bitart 1 tab Q4HP PRN PO 04/19/25 21:15 04/20/25 18:05 1 TAB Laboratory Laboratory Tests 04/21/25 06:10 Test 04/21/25 06:10 Range/Units Serum Glucose 118 H 74-106 mg/dL Examination: GENERAL:Normal, HEENT:Normal, NECK:Abnormal (New c/o bilateral neck sorness and decreased GINA, onset with stiffness onest yesterday evening, woke pt from sleep. Patient needs SOFT collar not rigid collar), LUNGS:Normal, CVS:Normal, ABDOMEN:Normal, MSK:Normal, NEURO:Normal (all preop symptoms resolved), :Normal Problem List/Assessment/Plan Problems: (1) Muscle spasms of neck (2) Muscle spasm of back (3) Acute post-operative pain Assessment and Plan POD # 4 Disposition: -home with home health Events of the day Patient has neck stiffness and lateral pain. CT ordered and reviewed with no acute causes identified. Chronic DDD and prior surgeries apparent. Operative hardware appropriately positioned. soft collar for comfort Posterior lumbar incision covered with neo dressing which is functioning seal is intact power source is on Patient states that he has improvement in preoperative symptoms Patient able to independently move himself around bed with increased pain with movement- it is improving Patient has gotten up with PT and ambulated in hallway CT result for neck pain: Indication: CERVICAL RADICULOPATHY Technique: CT axial images of the cervical spine are obtained without contrast. Coronal and sagittal reformats were obtained. Radiation Dose Information: CTDI volume is 25.39 mGy. Dose-length product is 684.73 mGy*cm Comparison: None FINDINGS: The cervical vertebral body heights are maintained. Anterior fusion at C5 through C7. There is moderate to severe disc space narrowing. No prevertebral edema. Facet articulations demonstrate moderate facet hypertrophic changes. . The atlantooccipital, atlantoaxial articulations are intact. C2-3: Severe right and moderate to severe left neural foraminal stenosis. C3-4: Severe right and moderate to severe left neural foraminal stenosis. C4-5: Moderate to severe bilateral neural foraminal stenosis. C5-6: Severe bilateral neural foraminal stenosis. C6-7: Severe bilateral neural foraminal stenosis. C7-T1: Mild bilateral neural foraminal stenosis. IMPRESSION: Moderate to severe cervical degenerative disc disease. Anterior cervical fusion C5 through C7. -Discharge RX: Pending -Follow up appointment: with Dr Plaza on prior scheduled appointment date set out preop appointment [phone] [id number] [facility] [address] [place] [id number] -Pain: - IV pain meds post op day 1, with PO supplementation, goal is to progress weaning off IV medications and control pain with PO only. morphine 2mg q 4 hours (PAIN 7-10) - P.O. analgesics:Tylenol 650MG (PAIN 1-3) [place] 10/325 mg (PAIN 4-6) - Muscle relaxers scheduled administration. This is a beneficial medications for the incisional pain as it is mostly related to muscle spasms. Soma - Cepacol throat lozenges as needed for sore throat -Antibiotics Operative recommendations: -Postoperative dose:-Post operative antibiotics cefazolin 1 g IV piggyback every 8 hours x 48 hours total of 6 doses -DVT PPX: -Hold all chemical DVT/ blood thinners for 14 days postoperatively -use mechanical DVT PPX such as SCD's, ambulation -Activity: - PT sessions and patients progression -Sit at side of bed for meals -Goal: Ambulate independently and safely (may use assistive devices if needed) -Medical Therapy goals: -Afebrile- Patient may develop a expected post operative fever by day 2-3, this may not be accompanied with a elevation in WBC. if fever develops: Acetaminophen for fever. Albuterol nebulizer Tx every 12 hours for 24 hours to facilitate adequate lung expansion and prevent development of atelectasis. -Euglycemic: bloods sugars under 130mmol/L for optimal healing -Normotensive: Avoid events of hypertension. This helps to keep post operative healing intact and avoids destabilization of beneficial hemostatic coagulation. -Lumbar: -If patient is comfortable encouraged the patient to lay on their side to facilitate wound healing -Dressings Take care not to disrupt the NEO dressing seal. If there is a break in the seal it can be trouble shot with a Tegaderm dressing. -Dressing to Hemovac drains may be changed -Bowel management: -Colace 100mg bid -Diet: -patient tolerating -Incentive Spirometer: -10 x hour while awake, RN please educate and observe repeat demonstration, have IS at bedside POD #1 -X-rays: - none indicated at this time -Consults: -Physical Therapy evaluation, treatment recommendations, and discharge recommendations Call with questions Loco Pinzon ACNP- Orthopaedic Spine Surgery nurse practitioner For Dr Patrick Plaza Patient was examined, chart reviewed, labs evaluated, and diagnostic studies and findings analyzed. Case was discussed with Dr. Volodymyr Plaza who formulated the plan of care. This medical document was created using an electronic medical record system with [email or web address] dictation system. Although this document has been carefully reviewed, there might still be some phonetic and typographical errors. These areas are purely typographical due to imperfections of the software programs, and do not reflect any compromise in the patient's medical care. My Orders My Orders Orders - DENZEL PINZON NP Procedure Category Date Status Time Communication Order ORDERS 04/20/25 Transmitted 17:[address] 04/21/25 Resulted Contrast 06:22 Plan discussed with Plan discussed with: Patient Visit Coding Surgery Date of Service if different f: Apr 17, 2025 Billing Provider: DENZEL PINZON NP Surgery Visit Codes: NOT BILLABLE DENZEL PINZON NP Apr 21, 2025 10:20
--- NOTE | 2025-04-21 13:04 | DVHDS2 ---
Discharge Summary Date of Admission Apr 17, 2025 at 18:25 Date of Discharge: Apr 21, 2025 Wounds: posterior lumbar Labs/Diagnostic Data: Laboratory Results Test 04/21/25 06:10 White Blood Count 11.3 10^3/uL (4.4-10.8) Red Blood Count 3.97 10^6/uL (4.5-5.90) Hemoglobin 11.5 g/dL (13.5-17.5) Hematocrit 34.1 % (41.0-53.0) Mean Corpuscular Volume 85.9 fL (80.0-100.0) Mean Corpuscular Hemoglobin 28.9 pg (28.0-32.0) Mean Corpuscular Hemoglobin Concent 33.7 g/dL (32.0-36.0) Red Cell Distribution Width 13.1 % (11.8-14.3) Platelet Count 335 10^3/uL (140-450) Mean Platelet Volume 8.4 fL (6.9-10.8) Neutrophils (%) (Auto) 72.5 % (37.0-80.0) Lymphocytes (%) (Auto) 11.2 % (10.0-50.0) Monocytes (%) (Auto) 13.8 % (0.0-12.0) Eosinophils (%) (Auto) 2.2 % (0.0-7.0) Basophils (%) (Auto) 0.3 % (0.0-2.0) Neutrophils # (Auto) 8.2 10 ^3/uL (1.6-8.6) Lymphocytes # (Auto) 1.3 10 ^3/uL (0.4-5.4) Monocytes # (Auto) 1.6 10 ^3/uL (0-1.3) Eosinophils # (Auto) 0.3 10 ^3/uL (0-0.8) Basophils # (Auto) 0 10 ^3/uL (0-0.2) Nucleated Red Blood Cells 0.1 % Sodium Level 138 mmol/L (136-145) Potassium Level 3.9 mmol/L (3.5-5.1) Chloride Level 106 mmol/L (98-107) Carbon Dioxide Level 25 mmol/L (20-31) Anion Gap 7 (5-15) Blood Urea Nitrogen 8 mg/dL (9-23) Creatinine 0.64 mg/dL (0.700-1.30) Glomerular Filtration Rate Calc 105 mL/min (>90) BUN/Creatinine Ratio 12.5 (10.0-20.0) Serum Glucose 118 mg/dL (74-106) Calcium Level 8.8 mg/dL (8.7-10.4) Other Laboratory Tests 04/21/25 06:10 Brief Hx & Hospital Course: The patient arrived for a elective spine surgery with Dr. PLAZA. Surgery went as planned with no complications. After a short stay in the PACU patient was admitted to the hospital for postoperative care and pain management over the course of 4 postoperative days the patient was able to tolerate a diet, ambulate independently, the pain has been managed with oral analgesics. The surgical site is well-approximated with sutures, some residual drainage continues from drain insertion sites after removal, however it is manageable with daily wound care and dressing changes. Some improvement to preoperative symptoms of extremities, strength and motion. There is new post operative pain that is localized to the surgical site. The patient will follow-up with Dr. Plaza for wound check and suture check or staple removal. The patient may use Soft collar for comfort and while mobilizing. Operations or Procedures Procedure: 1. Revision lumbar 5 laminotomies/foraminotomies/facetectomies to decompress central canal and lumbar 5 nerve roots bilaterally 2. Revision lumbar 4 laminotomies, foraminotomies/facetectomies to decompress central canal and lumbar 4 nerve roots bilaterally 3. Revision lumbar 3 laminotomies foraminotomies and facetectomies to decompress central canal and bilateral lumbar 3 rakesh roots 4. Lumbar 2 laminectomy with bilateral lumbar 2 laminotomies/foraminotomies/facetectomies to decompress spinal canal and lumbar 2 nerve roots 5. Lumbar 1 to 2 posterior spinal intertransverse fusion with bone graft 6. Lumbar 1 to 2 posterior spinal instrumentation with pedicle screws 7. Autograft bone for fusion 8. Allograft bone to augment fusion 9. De-mineralized bone matrix to augment fusion 10. Microscope for micro dissection 11. 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 The collar may cause more weakness if worn too much. alternate heat and cool to lateral neck, for muscle spasms. massage, slow movement Follow Up/Referral: Call [phone] for a appointment, or to change or confirm your appoinment, you shol have anappointment already scheduled for you post op check [id number] [facility] [address], [address], [place] [id number] Medications: take medications as directed, if you need any adjustments call dr Plaza at office and leave message Continued Medications: Aspirin (Aspirin Low Dose) 81 Mg Chw 81 MG PO DAILY, TAB.CHEW Atorvastatin Calcium (Atorvastatin Calcium) 20 Mg Tab 20 MG PO DAILY, TAB Carvedilol (Carvedilol) 3.125 Mg Tab 3.125 MG PO BID, TAB Cyclobenzaprine Hcl (Cyclobenzaprine Hcl) 5 Mg Tab 10 MG PO DAILY, TAB Docusate Sodium (Colace) 100 Mg Cap 100 MG PO DAILY, CAP Gabapentin (Gabapentin) 300 Mg Cap 400 MG PO DAILY, CAP Oxycodone W/ Acetaminophen (Percocet 5/325MG) 1 Tab Tb 2 TAB PO TID, #90 TAB Pantoprazole Sodium Sesquihydr (Protonix) 40 Mg Tab 40 MG PO DAILY, #30 TAB Scheduled Aspirin (Aspirin Low Dose), 81 MG PO DAILY, (Reported) Atorvastatin Calcium (Atorvastatin Calcium), 20 MG PO DAILY, (Reported) Carvedilol (Carvedilol), 3.125 MG PO BID, (Reported) Cyclobenzaprine Hcl (Cyclobenzaprine Hcl), 10 MG PO DAILY, (Reported) Docusate Sodium (Colace), 100 MG PO DAILY, (Reported) Gabapentin (Gabapentin), 400 MG PO DAILY, (Reported) Oxycodone W/ Acetaminophen (Percocet 5/325MG), 2 TAB PO TID, (Reported) Pantoprazole Sodium Sesquihydr (Protonix), 40 MG PO DAILY, (Reported) Discharge Statement: "Patient was advised to return to the ER or call 911 if any headaches, dizziness, shortness of breath, chest pain, abdominal pain, bleeding, fevers, or worsening of medical condition. Patient was counseled about treatment plan, medications, possible side effects, patientverbalized understanding. All questions were answered to the best of my ability. 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 . 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 chrominc conditions unchanged DENZEL PINZON NP Apr 21, 2025 13:04
== END 2025-04-21 16:53 | disposition home health service (06) | DRG 451 ==
LOC: SUR 08:35 → OVERFLOW 18:25 → TELE-WESTW 20:40
PROVIDERS: ADMIT Hospitalist; ATTEND Orthopaedic Surgery
PROC: 01NB0ZZ Release Lumbar Nerve, Open Approach (ICD-10-PCS; 2025-04-17)
PROC: 00NY0ZZ Release Lumbar Spinal Cord, Open Approach (ICD-10-PCS; 2025-04-17)
PROC: 4A11X4G Monitoring of Peripheral Nervous Electrical Activity, Intraoperative, External Approach (ICD-10-PCS; 2025-04-17)
PROC: 0SG00K1 Fusion of Lumbar Vertebral Joint with Nonautologous Tissue Substitute, Posterior Approach, Posterior Column, Open Approach (ICD-10-PCS; principal; 2025-04-17 14:43)
DX: M48.061 Spinal stenosis, lumbar region without neurogenic claudication (principal); I10 Essential (primary) hypertension; M96.1 Postlaminectomy syndrome, not elsewhere classified; G89.29 Other chronic pain; E78.00 Pure hypercholesterolemia, unspecified; K21.9 Gastro-esophageal reflux disease without esophagitis; M50.322 Other cervical disc degeneration at C5-C6 level; M51.16 Intervertebral disc disorders with radiculopathy, lumbar region; M51.369 Other intervertebral disc degeneration, lumbar region without mention of lumbar back pain or lower extremity pain; G89.18 Other acute postprocedural pain; M62.838 Other muscle spasm
CPT/HCPCS: 36415; 72100; 72125; 76000; 80048; 85014; 85018; 85025; 86850; 86900; 86901; 97110; 97116; 97163; G0378; J0330; J1100; J1956; J2250; J2405; J2704; J7042